=== PATIENT | male | born 1985 | race Caucasian/White ===

== ENCOUNTER → 2023-05-09 | Outpatient (CLI) | payer OTHER ==
--- NOTE | 2023-05-09 14:52 | CT ---
EXAMINATION TYPE: CT abdomen pelvis w con DATE OF EXAM: 05/09/2023 COMPARISON: NONE HISTORY: 38-year-old male D72.829, leukocytosis and swelling in extremities TECHNIQUE: Contiguous axial scanning of the abdomen and pelvis following administration of 100 ml Iso marah 300 IV contrast. Delayed images through the kidneys and coronal/sagittal reconstructions perform ed. CT DLP: 1016.70 mGycm Automated exposure control for dose reduction was used. FINDINGS: Heart normal size without pericardial effusion. Lung bases clear without pleural effusion. No focal liver lesion or biliary ductal dilatation. Portal venous system is patent. Gallbladder, adrenal glands, kidneys, spleen, and pancreas within normal limits. Retroaortic left renal vein. Scattered small retroperitoneal lymph nodes measuring up to 9 mm. No mesenteric or retroperitoneal ad enopathy by size criteria. No dilated bowel, free fluid, or free air. While the appendix is not discretely visualized, no second cait findings of acute appendicitis. Mild to moderate stool burden. No pericolic inflammatory change. There is mild circumferential bladder wall thickening away mild to moderate perivesicular fat strandi ng. Some asymmetrically enlarged right inguinal lymph nodes measuring up to 1.6 cm and mild soft tiss ue swelling anterior upper right thigh. No abnormal fluid collection in the pelvis. Bones: No osseous destructive process. IMPRESSION: 1. PERIVESICULAR FAT STRANDING WITH MILD BLADDER WALL THICKENING. CORRELATE FOR CYSTITIS. 2. THERE ARE ASYMMETRICALLY ENLARGED RIGHT INGUINAL LYMPH NODES MEASURING UP TO 1.6 CM. THERE IS MILD ANTERIOR SUBCUTANEOUS SOFT TISSUE SWELLING ALSO PRESENT ALONG THE VISUALIZED RIGHT THIGH. UNCLEAR IF THESE CHANGES RELATE TO CELLULITIS. CLINICALLY CORRELATE. ALSO, CORRELATE TO EXCLUDE THE POSSIBILITY OF UNDERLYING DVT.
== END | disposition home or self-care (01) ==
LOC: RADCTMAIN 09:53
PROVIDERS: ATTEND Family Medicine
DX: D72.829 Elevated white blood cell count, unspecified (principal); N32.89 Other specified disorders of bladder; R59.0 Localized enlarged lymph nodes; M79.89 Other specified soft tissue disorders
CPT/HCPCS: 74177; Q9967